=== PATIENT | female | born 1930 | race Caucasian/White ===

== ENCOUNTER → 2017-01-13 | Outpatient (CLI) | payer MEDICARE ==
--- NOTE | 2017-01-13 19:52 | REP ---
Lumbar spine series: Five views. History: Low back pain. No comparison views. Findings: Lumbar vertebral body heights are preserved. There is straightening of the normal lumbar lordosis. 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 Pedicles and posterior elements are intact. 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 Vacuum phenomenon are seen. No fracture or collapse is seen. Vascular calcification is noted in a normal caliber aorta. 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 Sacrum and SI joints are intact. Psoas margins are symmetric. Impression: Advanced diffuse degenerative spondylosis change. Scoliosis. Signed by Darwin Saleem MD 01/14/2017 10:11 A
== END ==
LOC: M WUC 17:52
PROVIDERS: ATTEND Physician Assistant
DX: M54.5 Low back pain (principal); V89.2XXA Person injured in unspecified motor-vehicle accident, traffic, initial encounter; Y99.8 Other external cause status; M47.816 Spondylosis without myelopathy or radiculopathy, lumbar region

== ENCOUNTER → 2018-01-31 | Outpatient (REF) | payer MEDICARE | LOC: M SFHCLERA 11:22 | PROVIDERS: ATTEND Nurse Practitioner Family | DX: R35.0 Frequency of micturition (principal) | CPT/HCPCS: 81002; 87086; G0463 ==